=== PATIENT | female | born 1995 | race Caucasian/White ===

== ENCOUNTER 2016-06-05 13:22 | Emergency (ER) | payer OTHER ==
--- NOTE | 2016-06-05 15:26 | DIAGNOSTIC IMAGING REPORT ---
PROCEDURE: ABDOMEN/PELVIS WITH CONTRAST CLINICAL INDICATION: ABDOMINAL PAIN TECHNIQUE: 125 ml of Isovue 300 were injected intravenously and axial images were obtained of the abdomen and pelvis with sagittal and coronal reformations. COMPARISON: None. FINDINGS: ABDOMEN: Clear lung bases. Normal sized heart. No hiatal hernia. The liver, gallbladder, adrenal glands, kidneys, pancreas and spleen are normal. The abdominal aorta is normal in its course and caliber. There are no suspicious calcifications, retroperitoneal adenopathy or masses. The stomach, upper bowel loops, and mesentery are normal. Intact anterior abdominal wall. No free fluid or inflammation. PELVIS: Small amount of free fluid in the cul-de-sac. Involuting, peripherally hypervascular right ovarian corpus luteum. The appendix and pelvic small bowel loops are normal. Normal amount of stool in the colon and rectum. The uterus, ovaries, urinary bladder, and pelvic vessels are normal. No adenopathy, free fluid, or pelvic mass. Intact osseous structures. IMPRESSION: 1. Involuting right ovarian corpus luteum cyst. 2. Small amount of free pelvic fluid consistent with ovarian cyst rupture. 3. Nonvisualization of the appendix but no suspicious periappendiceal inflammatory changes. 4. Findings called to the emergency room. All CT scans at this facility use dose modulation, iterative reconstruction, and/or weight-based dosing when appropriate to reduce radiation dose to as low as reasonably achievable.
--- NOTE | 2016-06-05 15:28 | ED ORDER SUMMARY ---
..... Patient: DARA CUEVAS OrderSheet [facility] VisitID: [id number] [place] [address] 21y, F Registration Date/Time: 06/05/2016 ORDER SHEET Weight: 65.3 kg (stated) Allergies: No Known Drug Allergy GENERAL ORDERS: CBC w Diff Urgent (13:56 06/05/2016 HBivens A.R.N.P.) (Ack 14:02 IJurca ER Tech1) (14:10 EHassan R.N.) CMP Urgent (13:56 06/05/2016 HBivens A.R.N.P.) (Ack 14:02 IJurca ER Tech1) (14:10 EHassan R.N.) UA-Culture if indicated Urgent (13:56 06/05/2016 HBivens A.R.N.P.) (Ack 14:02 IJurca ER Tech1) (14:10 EHassan R.N.) Amylase Urgent (13:56 06/05/2016 HBivens A.R.N.P.) (Ack 14:02 IJurca ER Tech1) (14:10 EHassan R.N.) Lipase Urgent (13:56 06/05/2016 HBivens A.R.N.P.) (Ack 14:02 IJurca ER Tech1) (14:10 EHassan R.N.) Urine Urgent (13:56 06/05/2016 HBivens A.R.N.P.) (Ack 14:02 IJurca ER Tech1) (14:10 EHassan R.N.) CT Abd/Pel w Cont (No) (normal) Urgent (14:39 06/05/2016 HBivens A.R.N.P.) (Ack 14:42 IJurca ER Tech1) (14:59 IJurca ER Tech1) MEDICATION ORDERS: IV FLUIDS: Toradol IV 30 mg (NOW) (13:56 06/05/2016 HBivens A.R.N.P.) (14:11 EHassan R.N.) IV Saline Lock (13:56 06/05/2016 HBivens A.R.N.PClari) (14:10 Yonas Jenkins) ORDER SHEET NOTES: [Electronically signed by Aníbal Preston R.N. (15:39 06/05/2016)] [Electronically signed by Gay NarayananNClariPClari (17:04 06/05/2016)] [Electronically locked/signed by Aníbal Preston R.N. (15:39 06/05/2016)]
--- NOTE | 2016-06-05 15:28 | ED NURSING NOTES ---
Clinical Report - Nurses [facility] [address] [place] [address] 06/05/2016 13:27 Patient: DARA CUEVAS TRIAGE Triage time 1342 PM. Acuity: LEVEL 4. Chief Complaint: PELVIC PAIN and FREQUENCY. Alert. No acute distress. SEPSIS SCREEN: Sepsis Screen. Negative (no infection suspected/documented). --13:54 Marlin Chávez R.N. 13:41 06/05/16. BP: 139/48 (regular adult cuff) taken on the left arm, via an automated monitor, while lying. HR: 87. RR: 14. O2 saturation: 100%. Temp: 98.4 F (oral). Pain level now: 810. --13:54 Marlin Chávez R.N. Weight: 65.3 kg stated. Height/Length: 63 inches Per Patient. BMI: 25.5. --13:41 Marlni Chávez R.N. Medications Control Pills. --13:45 Marlin Chávez R.N. Allergies No Known Drug Allergy. --13:45 Marlin Chávez R.N. Medication/allergy information source: the patient. --13:54 Marlin Chávez R.N. History Arrived by private vehicle. Historian: patient. Accompanied by family. [facility] ( Pt states has been dealing with pelvic pain and cyst for the past 6 months, has been to different doctors but feels like has not received proper treatment for it. This pain initiated 1 1/2 week ago, thought maybe she has a UTI, but pain has been getting worst. Here for further evaluation. Pt has had a fevers for about a week, did not take temperature. Also has had urgency with urination, vomited x1 2 days ago and has continued to be nauseous. Pain is in the RLQ and has radiated to the back bilateral. Pt states being 2 weeks late, did go to the walk in yesterday at [facility]). Onset. (1 1/2 weeks). She has had abdominal pain. She has had moderate, intermittent right-sided and left-sided flank pain with nausea. No hematuria, abnormal bleeding or fever. 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 PAST MEDICAL HX: Immunizations: up-to-date. Last normal menstrual period- April 19. SOCIAL HX: Light tobacco smoker- less than 1/2 a pack per day. Occasional alcohol use. No drug use. No infectious disease exposure. ABUSE ASSESSMENT: No report of abuse. SELF HARM ASSESSMENT: A self harm assessment was performed. The patient answered "no" to the question "Do you have thoughts of harming or killing yourself?" and "Have you recently had thoughts about harming or killing others?". FALL RISK ASSESSMENT: Fall risk assessment completed. No fall risk identified. NUTRITIONAL RISK ASSESSMENT: The nutritional risk assessment revealed no deficiencies. FUNCTIONAL ASSESSMENT: Functional assessment: no impairments noted. LEARNING NEEDS ASSESSMENT: The learning needs assessment revealed no barriers. --13:54 Marlin Chávez R.N. PROBLEMS: Ovarian Cyst. Pelvic Pain. --13:45 Marlin Chávez R.N. ADDITIONAL SURGERIES: no known surgeries. Interventions ID band on patient. --13:54 Marlin Chávez R.N. NURSING PROGRESS NOTES The initial plan of care for this patient has been created This plan of care was discussed with the patient. Patient gowned. Warming measures: blanket applied. Reassurance given. Two patient identifiers checked. Call light placed in reach. --13:55 Marlin Chávez R.N. 14:10 06/05/2016 Site #1 started via IV in the left antecubital space with an 20g angiocath; one attempt. Blood drawn: rainbow set. Labeled in the presence of the patient and sent to the lab. --14:10 Marlin Chávez R.N. 14:11 06/05/2016 Toradol IVP 30 mg given over 30 second(s) via site #1. Allergies verified and confirmed 5 rights. IV patency established. IV site checked: no pain, redness, or swelling. IV flushed thoroughly pre- and post-medication administration. IVP given by RN. --14:11 Marlin Chávez R.N. Reassurance given. Overall patient status is improved- she states feels better. GI / : The patient reports nausea. The patient reports abdominal pain. Care transferred and report given (Vini Spangler). --15:15 Marlin Chávez R.N. 15:14 06/05/16. BP: 109/63 (regular adult cuff) taken on the left arm, via an automated monitor, while lying. HR: 60. RR: 16. O2 saturation: 100%. Temp: 98.7 F. Pain level now: 05/18. --15:15 Marlin Chávez R.N. Patient waiting for CT results. --15:15 Marlin Chávez R.N. DISPOSITION / DISCHARGE Departure time: 15:38. Condition at departure: improved. No learning barriers present. Discharge instructions provided and reviewed with the patient. Reviewed medication(s) side effects, precautions, dosing and course information. Prescription(s) given to the patient (ultram). Patient verbalized understanding. Written instructions provided in Cymro. ( Pt stated she will go back [facility] OBG[facility] The patient was discharged by the nurse practitioner. She was accompanied by spouse. She left the Emergency Department ambulatory and via private vehicle. Spouse driving. --15:39 Aníbal Preston R.N. Locked/Released at 06/05/2016 15:39 by Aníbal Preston R.N.
--- NOTE | 2016-06-05 15:28 | ED ORDER SUMMARY ---
..... Patient: DARA CUEVAS OrderSheet [facility] VisitID: [id number] [place] [address] 21y, F Registration Date/Time: 06/05/2016 ORDER SHEET Weight: 65.3 kg (stated) Allergies: No Known Drug Allergy GENERAL ORDERS: CBC w Diff Urgent (13:56 06/05/2016 HBivens A.R.N.P.) (Ack 14:02 IJurca ER Tech1) (14:10 EHassan R.N.) CMP Urgent (13:56 06/05/2016 HBivens A.R.N.P.) (Ack 14:02 IJurca ER Tech1) (14:10 EHassan R.N.) UA-Culture if indicated Urgent (13:56 06/05/2016 HBivens A.R.N.P.) (Ack 14:02 IJurca ER Tech1) (14:10 EHassan R.N.) Amylase Urgent (13:56 06/05/2016 HBivens A.R.N.P.) (Ack 14:02 IJurca ER Tech1) (14:10 EHassan R.N.) Lipase Urgent (13:56 06/05/2016 HBivens A.R.N.P.) (Ack 14:02 IJurca ER Tech1) (14:10 EHassan R.N.) Urine Urgent (13:56 06/05/2016 HBivens A.R.N.P.) (Ack 14:02 IJurca ER Tech1) (14:10 EHassan R.N.) CT Abd/Pel w Cont (No) (normal) Urgent (14:39 06/05/2016 HBivens A.R.N.P.) (Ack 14:42 IJurca ER Tech1) (14:59 IJurca ER Tech1) MEDICATION ORDERS: IV FLUIDS: Toradol IV 30 mg (NOW) (13:56 06/05/2016 HBivens A.R.N.P.) (14:11 EHassan R.N.) IV Saline Lock (13:56 06/05/2016 HBivens A.R.N.PClari) (14:10 Yonas Jenkins) ORDER SHEET NOTES: [Electronically signed by Aníbal Preston R.N. (15:39 06/05/2016)] [Electronically signed by Gay NarayananNClariPClari (17:04 06/05/2016)] [Electronically locked/signed by Aníbal Preston R.N. (15:39 06/05/2016)]
--- NOTE | 2016-06-05 15:28 | ED NURSING NOTES ---
Clinical Report - Nurses [facility] [address] [place] [address] 06/05/2016 13:27 Patient: DARA CUEVAS TRIAGE Triage time 1342 PM. Acuity: LEVEL 4. Chief Complaint: PELVIC PAIN and FREQUENCY. Alert. No acute distress. SEPSIS SCREEN: Sepsis Screen. Negative (no infection suspected/documented). --13:54 Marlin Chávez R.N. 13:41 06/05/16. BP: 139/48 (regular adult cuff) taken on the left arm, via an automated monitor, while lying. HR: 87. RR: 14. O2 saturation: 100%. Temp: 98.4 F (oral). Pain level now: 810. --13:54 Marlin Chávez R.N. Weight: 65.3 kg stated. Height/Length: 63 inches Per Patient. BMI: 25.5. --13:41 Marlin Chávez R.N. Medications Control Pills. --13:45 Marlin Chávez R.N. Allergies No Known Drug Allergy. --13:45 Marlin Chávez R.N. Medication/allergy information source: the patient. --13:54 Marlin Chávez R.N. History Arrived by private vehicle. Historian: patient. Accompanied by family. [facility] ( Pt states has been dealing with pelvic pain and cyst for the past 6 months, has been to different doctors but feels like has not received proper treatment for it. This pain initiated 1 1/2 week ago, thought maybe she has a UTI, but pain has been getting worst. Here for further evaluation. Pt has had a fevers for about a week, did not take temperature. Also has had urgency with urination, vomited x1 2 days ago and has continued to be nauseous. Pain is in the RLQ and has radiated to the back bilateral. Pt states being 2 weeks late, did go to the walk in yesterday at [facility]). Onset. (1 1/2 weeks). She has had abdominal pain. She has had moderate, intermittent right-sided and left-sided flank pain with nausea. No hematuria, abnormal bleeding or fever. 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 PAST MEDICAL HX: Immunizations: up-to-date. Last normal menstrual period- April 19. SOCIAL HX: Light tobacco smoker- less than 1/2 a pack per day. Occasional alcohol use. No drug use. No infectious disease exposure. ABUSE ASSESSMENT: No report of abuse. SELF HARM ASSESSMENT: A self harm assessment was performed. The patient answered "no" to the question "Do you have thoughts of harming or killing yourself?" and "Have you recently had thoughts about harming or killing others?". FALL RISK ASSESSMENT: Fall risk assessment completed. No fall risk identified. NUTRITIONAL RISK ASSESSMENT: The nutritional risk assessment revealed no deficiencies. FUNCTIONAL ASSESSMENT: Functional assessment: no impairments noted. LEARNING NEEDS ASSESSMENT: The learning needs assessment revealed no barriers. --13:54 Marlin Chávez R.N. PROBLEMS: Ovarian Cyst. Pelvic Pain. --13:45 Marlin Chávez R.N. ADDITIONAL SURGERIES: no known surgeries. Interventions ID band on patient. --13:54 Marlin Chávez R.N. NURSING PROGRESS NOTES The initial plan of care for this patient has been created This plan of care was discussed with the patient. Patient gowned. Warming measures: blanket applied. Reassurance given. Two patient identifiers checked. Call light placed in reach. --13:55 Marlin Chávez R.N. 14:10 06/05/2016 Site #1 started via IV in the left antecubital space with an 20g angiocath; one attempt. Blood drawn: rainbow set. Labeled in the presence of the patient and sent to the lab. --14:10 Marlin Chávez R.N. 14:11 06/05/2016 Toradol IVP 30 mg given over 30 second(s) via site #1. Allergies verified and confirmed 5 rights. IV patency established. IV site checked: no pain, redness, or swelling. IV flushed thoroughly pre- and post-medication administration. IVP given by RN. --14:11 Marlin Chávez R.N. Reassurance given. Overall patient status is improved- she states feels better. GI / : The patient reports nausea. The patient reports abdominal pain. Care transferred and report given (Vini Spangler). --15:15 Marlin Chávez R.N. 15:14 06/05/16. BP: 109/63 (regular adult cuff) taken on the left arm, via an automated monitor, while lying. HR: 60. RR: 16. O2 saturation: 100%. Temp: 98.7 F. Pain level now: 05/18. --15:15 Marlin Chávez R.N. Patient waiting for CT results. --15:15 Marlin Chávez R.N. DISPOSITION / DISCHARGE Departure time: 15:38. Condition at departure: improved. No learning barriers present. Discharge instructions provided and reviewed with the patient. Reviewed medication(s) side effects, precautions, dosing and course information. Prescription(s) given to the patient (ultram). Patient verbalized understanding. Written instructions provided in Bel[place]an. ( Pt stated she will go back to [facility] OBG[facility] The patient was discharged by the nurse practitioner. She was accompanied by spouse. She left the Emergency Department ambulatory and via private vehicle. Spouse driving. --15:39 Aníbal Preston R.N. Locked/Released at 06/05/2016 15:39 by Aníbla Preston R.N.
--- NOTE | 2016-06-05 15:28 | ED CLINICAL REPORT ---
Clinical Report - Physicians/Mid Levels [facility] [address] [place] [address] 06/05/2016 13:27 Patient: DARA CUEVAS Time Seen: 13:49; initial patient contact, initial documentation, patient care assumed. Arrived- By private vehicle. Historian- patient. HISTORY OF PRESENT ILLNESS Chief Complaint: ABDOMINAL PAIN. At its maximum, severity described as moderate. When seen in the E.D., severity described as moderate. Modifying factors. Not worsened by anything. Not relieved by anything. This started about 6 months ago. It is described as "pain". No radiation. It is described as located in the right lower quadrant and right pelvis. No nausea or loss of appetite. She has had mild vomiting (none today). She has had diarrhea (none today). No additional abdominal pain. Similar symptoms previously: Chronically, milder. Recent medical care: The patient was seen recently in a clinic. ( went to yesterday, urine checked and dx with R ovarian cyst, pain no better so came here today). REVIEW OF SYSTEMS No constipation, black stools, hematemesis, difficulty with urination or pain with urination. No abnormal bleeding, chest pain or difficulty breathing. The patient has had mild urinary frequency. The patient has missed periods (about 2 weeks late this month, and never late). Denies current . She has had a subjective fever. All systems otherwise negative, except as recorded above. PAST HISTORY See nurses notes. PROBLEMS: Ovarian Cyst. Pelvic Pain. --13:45 Marlin Chávez RSal ADDITIONAL SURGERIES: no known surgeries. SOCIAL HISTORY Light tobacco smoker. Occasional alcohol use. No drug use. No recent travel. Is a local resident. FAMILY HISTORY Negative. ADDITIONAL NOTES The nursing notes have been reviewed with agreement regarding the chief complaint, HPI, ROS, PMH and patient medications and allergies. PHYSICAL EXAM Vital Signs: 06/05/2016 13:41 BP: 139/48. HR: 87. RR: 14. O2 saturation: 100%. Temp: 98.4 F. Pain level now: 8/10. Have been reviewed as normal and appear to be correct. Appearance: Alert. Oriented X3. No acute distress. Eyes: Pupils equal, round and reactive to light. Eyes normal inspection. Neck: Normal inspection. Neck supple. CVS: Normal heart rate and rhythm. Heart sounds normal. Pulses normal. Respiratory: No respiratory distress. Breath sounds normal. Chest nontender. Abdomen: Soft. Mild tenderness in the right lower quadrant. No guarding, rebound tenderness or Baum's, obturator or psoas sign present. Bowel sounds normal. No organomegaly. No mass. Tenderness present. Back: Normal inspection. Skin: Skin warm and dry. Normal skin color. No rash. Normal skin turgor. Extremities: Extremities exhibit normal ROM. No lower extremity edema. Neuro: Oriented X 3. No motor deficit. No sensory deficit. LABS, X-RAYS, AND EKG Abdominal CT: . IMPRESSION: 1. Involuting right ovarian corpus luteum cyst. 2. Small amount of free pelvic fluid consistent with ovarian cyst rupture. 3. Nonvisualization of the appendix but no suspicious periappendiceal inflammatory changes. 4. Findings called to the emergency room. All CT scans at this facility use dose modulation, iterative reconstruction, and/or weight-based dosing when appropriate to reduce radiation dose to as low as reasonably achievable. Electronically Final signed by:Iris Avitia MD 06/05/2016 3:26:35 PM. The study was interpreted by the radiologist and discussed with the radiologist. Interpretation time: 15:25. Laboratory Tests: UA-Culture if indicated: (ULICES: 06/05/2016 13:40) ( MsgRcvd 06/05/2016 14:32) Final results Test Result Flag Units (Reference) URINE COLOR YELLOW URINE APPEARANCE CLEAR URINE GLUCOSE NEGATIVE (NEGATIVE) URINE BILIRUBIN NEGATIVE (NEGATIVE) URINE KETONE 1+ (NEGATIVE) URINE SPECIFIC GRAVITY 1.025 (1.010-1.030) URINE PH 5.5 (5.0-8.0) URINE PROTEIN NEGATIVE (NEGATIVE) URINE UROBILINOGEN 0.2 EU/dL (0.2-1.0) URINE NITRITE NEGATIVE (NEGATIVE) URINE BLOOD TRACE-INTACT (NEGATIVE) URINE LEUK ESTERASE NEGATIVE (NEGATIVE) URINE RBC 0-1 rbc/hpf (0-1) URINE WBC 0-1 wbc/hpf (0-1) URINE EPITHELIAL CELLS 1-3 EPI/hpf (0-5) URINE BACTERIA TRACE (<1+) (NONE SEEN) URINE COMMENT CULT NOT INDICATED 1+ MUCUSURINE CULTURES ARE SET-UP BASED ON THE FOLLOWING CRITERIA:POSITIVE NITRITEPOSITIVE LEUKOCYTE ESTERASEGREATER THAN 10 WHITE BLOOD CELLSMODERATE (2+) OR GREATER BACTERIA Urine: (ULICES: 06/05/2016 13:40) ( [facility] 06/05/2016 14:15) Final results Test Result Flag Units (Reference) URINE NEGATIVE CBC w Diff: (ULICES: 06/05/2016 14:10) ( [facility] 06/05/2016 14:24) Final results Test Result Flag Units (Reference) WHITE BLOOD COUNT 8.0 K/uL (4.5-11.5) RED BLOOD COUNT 4.43 M/uL (4.00-5.20) HEMOGLOBIN 13.6 gm/dL (12.0-16.0) HEMATOCRIT 40.7 % (36.0-46.0) MEAN CELL VOLUME 92 fL (80-100) MEAN CORPUSCULAR HGB 31 pg (26-34) MEAN CORPUSCULAR HGB CONC 33 g/dL (31-37) RED CELL DISTRIBUTION WIDTH 12.5 % (11.6-14.8) PLATELET COUNT 215 K/uL (150-400) NEUTROPHIL % 75.1 H % (50-75) LYMPH % 17.8 L % (25-40) MONO % 6.0 % (3-14) EOSINOPHIL % 0.8 % (0-4) BASOPHIL % 0.3 % (0-2) CMP: (ULICES: 06/05/2016 14:10) ( [facility] 06/05/2016 14:32) Final results Test Result Flag Units (Reference) GLUCOSE 90 mg/dL (70-110) BUN 14 mg/dL (7-18) CREATININE 0.8 mg/dL (0.6-1.3) Estimated GFR >60 mL/min Estimated GFR- >60 mL/min Note: Persistent reduction over 3 months in eGFR<60 mL/min/1.73 m2 defines CKD. Patients with eGFR values>=60 mL/min/1.73 m2 may also have CKD if evidence ofpersistent proteinuria. Additional information may be foundat www.kidney.org. SODIUM 143 mmol/L (136-145) POTASSIUM 3.9 mmol/L (3.5-5.1) CHLORIDE 106 mmol/L (98-107) CARBON DIOXIDE 25 mmol/L (21-32) CALCIUM 8.5 mg/dL (8.5-10.1) TOTAL PROTEIN 7.4 g/dL (6.4-8.2) ALBUMIN 3.9 g/dL (3.3-5.0) BILIRUBIN, TOTAL 0.8 mg/dL (0.0-1.0) ALKALINE PHOSPHATASE 50 U/L (46-116) AST (SGOT) 23 U/L (15-37) ALT (SGPT) 24 U/L (12-78) LIPASE 145 U/L (73-393) AMYLASE 59 U/L (25-115) . PROGRESS AND PROCEDURES Course of Care: records from reviewed. Patient and spouse counseled in person regarding the patient's stable condition, test results and diagnosis. 1525. Differential Diagnosis: I considered acute appendicitis, mesenteric lymphadenitis, Meckel's diverticulum, diverticulitis, colon cancer, ulcerative colitis, Crohn's disease, biliary colic, cholecystitis, cholelithiasis, hepatitis, pancreatitis, common bile duct obstruction, urinary tract infection, cystitis, ureterolithiasis, ovarian cyst, ovarian torsion, , ectopic , pelvic inflammatory disease, pelvic abscess, endometriosis and viral syndrome as a possible cause of abdominal pain in this patient. This is a partial list of diagnoses considered. Above considerations are based on history, physical exam, laboratory data and other information. Differential diagnosis was discussed with patient. Disposition: Discharged home in good and improved condition (15:28). Condition: good and stable. CLINICAL IMPRESSION Single simple right ovarian cyst. No ruptured ovarian cyst, torsion of ovary or polycystic ovarian disease. INSTRUCTIONS Warnings: GENERAL WARNINGS: Return or contact your physician immediately if your condition worsens or changes unexpectedly, if not improving as expected, or if other problems arise. SPECIFICALLY, return if you develop pain in the abdomen or pelvis, fever, the inability to keep fluids down, blood in vomitus, blood in diarrhea, fainting or lightheadedness. Prescription Medications: Ultram 50 mg tablets: take 1-2 orally every 6 hours as needed for pain. Dispense twenty (20). No refills. Substitution is permissible. Follow-up: Follow up with your doctor in about two days even if well. Call for an appointment. Summary of care provided to patient. Understanding of the discharge instructions verbalized by patient. (Electronically signed by Gay Narayanan A.R.N.P. 06/05/2016 17:04)
--- NOTE | 2016-06-05 17:04 | ED DISCHARGE INSTRUCTIONS ---
Patient: DARA CUEVAS General Instructions [facility] VisitID: [id number] [place] [address] 21y, F Registration Date/Time: 06/05/2016 Single simple right ovarian cyst. No ruptured ovarian cyst, torsion of ovary or polycystic ovarian disease. INSTRUCTIONS Warnings: GENERAL WARNINGS: Return or contact your physician immediately if your condition worsens or changes unexpectedly, if not improving as expected, or if other problems arise. SPECIFICALLY, return if you develop pain in the abdomen or pelvis, fever, the inability to keep fluids down, blood in vomitus, blood in diarrhea, fainting or lightheadedness. Prescription Medications: Ultram 50 mg tablets: take 1-2 orally every 6 hours as needed for pain. Dispense twenty (20). No refills. Substitution is permissible. Follow-up: Follow up with your doctor in about two days even if well. Call for an appointment. Summary of care provided to patient. Understanding of the discharge instructions verbalized by patient. ADDITIONAL INFORMATION Ovarian Cyst The ovary is a small organ located on each side of the uterus. During each menstrual cycle a tiny egg sac forms in the ovary. If the egg is released but does not occur, this sac usually dissolves. Sometimes, the sac may fill with fluid. It then enlarges into a painful cyst. Usually the cyst will rupture or shrink on its own. In either case, the pain gradually goes away over the next 1-3 days. If the cyst does not shrink or rupture, it may cause continued pain. Home Care: Rest in bed and avoid heavy exertion until you are feeling better. Heat to the lower abdomen usually helps (heating pad or hot packs -- a small towel soaked in hot water). You may use acetaminophen (Tylenol) or ibuprofen (Motrin, Advil) to control pain, unless another pain medicine was prescribed. [NOTE: If you have chronic liver or kidney disease or ever had a stomach ulcer or GI bleeding, talk with your doctor before using these medicines.] Follow Up: See your doctor within the next 2-3 days if your pain doesnt improve. Otherwise, follow up with your doctor after your next period or as directed by our staff. Get Prompt Medical Attention if any of the following occur: Pain worsens or fails to respond to the above measures Fever of 100.4F (38C) or higher, or as directed by your healthcare provider Heavy vaginal bleeding (soaking one pad an hour for three hours) You feel weak or dizzy Fainting Passage of a pink or steen tissue with menstrual bleeding Pelvic Pain, Uncertain Cause Based on your visit today, the exact cause of your pelvic pain is not certain. But your condition does not appear to be serious at this time. However, the signs of a serious problem may take more time to appear. Therefore, it is important for you to watch for any new symptoms or worsening of your condition. Home Care: Rest until you are feeling better. Avoid sexual intercourse until your pain goes away. You may use acetaminophen (Tylenol) or ibuprofen (Motrin, Advil) to control pain, unless another medicine was prescribed. [NOTE: If you have chronic liver or kidney disease or ever had a stomach ulcer or GI bleeding, talk with your doctor before using these medicines.] Follow Up with your doctor as advised. If a culture test was taken, call in two days for the results. If the culture is positive, you will be given more advice at that time. Otherwise, follow-up with your doctor or this facility as instructed. Get Prompt Medical Attention if any of the following occur: Fever of 100.4F (38C) or higher, or as directed by your healthcare provider Vaginal discharge Worsening pain Weakness, dizziness or fainting Unexpected vaginal bleeding or passage of steen or white tissue from the vagina Pain that moves to the right lower abdomen Tramadol Hydrochloride Oral tablet What is this medicine? TRAMADOL (TRA ma dole) is a pain reliever. It is used to treat moderate to severe pain in adults. How should I use this medicine? Take this medicine by mouth with a full glass of water. Follow the directions on the prescription label. If the medicine upsets your stomach, take it with food or milk. Do not take more medicine than you are told to take. Talk to your vac press operator regarding the use of this medicine in children. Special care may be needed. What side effects may I notice from receiving this medicine? Side effects that you should report to your doctor or health acute care nursing assistant as soon as possible: allergic reactions like skin rash, itching or hives, swelling of the face, lips, or tongue breathing difficulties, wheezing confusion itching light headedness or fainting spells redness, blistering, peeling or loosening of the skin, including inside the mouth seizures Side effects that usually do not require medical attention (report to your doctor or health acute care nursing assistant if they continue or are bothersome): constipation dizziness drowsiness headache nausea, vomiting What may interact with this medicine? Do not take this medicine with any of the following medications: MAOIs like Carbex, Eldepryl, Marplan, Nardil, and Parnate This medicine may also interact with the following medications: alcohol or medicines that contain alcohol antihistamines benzodiazepines bupropion carbamazepine or oxcarbazepine clozapine cyclobenzaprine digoxin furazolidone linezolid medicines for depression, anxiety, or psychotic disturbances medicines for migraine headache like almotriptan, eletriptan, frovatriptan, naratriptan, rizatriptan, sumatriptan, zolmitriptan medicines for pain like pentazocine, buprenorphine, butorphanol, meperidine, nalbuphine, and propoxyphene medicines for sleep muscle relaxants naltrexone phenobarbital phenothiazines like perphenazine, thioridazine, chlorpromazine, mesoridazine, fluphenazine, prochlorperazine, promazine, and trifluoperazine procarbazine warfarin What if I miss a dose? If you miss a dose, take it as soon as you can. If it is almost time for your next dose, take only that dose. Do not take double or extra doses. Where should I keep my medicine? Keep out of the reach of children. Store at room temperature between 15 and 30 degrees C (59 and 86 degrees F). Keep container tightly closed. Throw away any unused medicine after the expiration date. What should I tell my health care provider before I take this medicine? They need to know if you have any of these conditions: brain tumor depression drug abuse or addiction head injury if you frequently drink alcohol containing drinks kidney disease or trouble passing urine liver disease lung disease, asthma, or breathing problems seizures or epilepsy suicidal thoughts, plans, or attempt; a previous suicide attempt by you or a family member an unusual or allergic reaction to tramadol, codeine, other medicines, foods, dyes, or preservatives or trying to get breast-feeding What should I watch for while using this medicine? Tell your doctor or health acute care nursing assistant if your pain does not go away, if it gets worse, or if you have new or a different type of pain. You may develop tolerance to the medicine. Tolerance means that you will need a higher dose of the medicine for pain relief. Tolerance is normal and is expected if you take this medicine for a long time. Do not suddenly stop taking your medicine because you may develop a severe reaction. Your body becomes used to the medicine. This does NOT mean you are addicted. Addiction is a behavior related to getting and using a drug for a non-medical reason. If you have pain, you have a medical reason to take pain medicine. Your doctor will tell you how much medicine to take. If your doctor wants you to stop the medicine, the dose will be slowly lowered over time to avoid any side effects. You may get drowsy or dizzy. Do not drive, use machinery, or do anything that needs mental alertness until you know how this medicine affects you. Do not stand or sit up quickly, especially if you are an older patient. This reduces the risk of dizzy or fainting spells. Alcohol can increase or decrease the effects of this medicine. Avoid alcoholic drinks. You may have constipation. Try to have a bowel movement at least every 2 to 3 days. If you do not have a bowel movement for 3 days, call your doctor or health acute care nursing assistant. Your mouth may get dry. Chewing sugarless gum or sucking hard candy, and drinking plenty of water may help. Contact your doctor if the problem does not go away or is severe. You have been given the following additional information: Ovarian Cyst Pelvic Pain, Unknown Cause Tramadol Hydrochloride Oral tablet (Electronically signed by Gay Narayanan A.R.N.P. 06/05/2016 17:04)
--- NOTE | 2016-06-05 17:04 | ED MED RECONCILIATION SUMMARY ---
Patient: DARA CUEVAS Medication Reconciliation Report [facility] VisitID: [id number] [address] [place] [address] 21y, F Registration Date/Time: 06/05/2016 Weight: 65.3 kg Height/Length: 63 in. BMI: 25.5 ALLERGIES: No Known Drug Allergy The patient's Home Medications are listed below: THE FOLLOWING MEDICATIONS NEED TO BE RECONCILED: Control Pills The source(s) of the original Home Medication information: patient The following Medications were given to the patient in the Emergency Department: Toradol [IVP] IVP 30 mg, administered: 06/05/2016 2:11:00 PM The following Medications were prescribed to the patient: Ultram 50 mg tablets: take 1-2 orally every 6 hours as needed for pain. Dispense twenty (20). No refills. Substitution is permissible. -- Gay Narayanan A.R.N.P.
--- NOTE | 2016-06-05 17:04 | ED MAR SUMMARY ---
..... Medication Administration Record [facility] [address] [place] [place] [address] Patient: DARA CUEVAS Visit ID: [id number] 21y, F Weight: 65.3 kg Height/Length: 63 in BMI: 25.5 ALLERGIES: No Known Drug Allergy Given 14:11 06/05/2016 Marlin Chávez RSal Medication Administered: TORADOL [IVP], Dose: 30 mg IVP over 30 second(s), Site: #1 left AC. Medication Ordered: Toradol IV 30 mg (NOW).
--- NOTE | 2016-06-05 17:04 | ED MAR SUMMARY ---
..... Medication Administration Record [facility] [address] [place] [address] Patient: DARA CUEVAS Visit ID: [id number] 21y, F Weight: 65.3 kg Height/Length: 63 in BMI: 25.5 ALLERGIES: No Known Drug Allergy Given 14:11 06/05/2016 Marlin Chávez RSal Medication Administered: TORADOL [IVP], Dose: 30 mg IVP over 30 second(s), Site: #1 left AC. Medication Ordered: Toradol IV 30 mg (NOW).
--- NOTE | 2016-06-05 17:04 | ED MED RECONCILIATION SUMMARY ---
Patient: DARA CUEVAS Medication Reconciliation Report [facility] VisitID: [id number] [address] [place] [address] 21y, F Registration Date/Time: 06/05/2016 Weight: 65.3 kg Height/Length: 63 in. BMI: 25.5 ALLERGIES: No Known Drug Allergy The patient's Home Medications are listed below: THE FOLLOWING MEDICATIONS NEED TO BE RECONCILED: Control Pills The source(s) of the original Home Medication information: patient The following Medications were given to the patient in the Emergency Department: Toradol [IVP] IVP 30 mg, administered: 06/05/2016 2:11:00 PM The following Medications were prescribed to the patient: Ultram 50 mg tablets: take 1-2 orally every 6 hours as needed for pain. Dispense twenty (20). No refills. Substitution is permissible. -- Gay Narayanan A.R.N.P.
--- NOTE | 2016-06-05 17:04 | ED DISCHARGE INSTRUCTIONS ---
Patient: DARA CUEVAS General Instructions [facility] VisitID: [id number] [place] [address] 21y, F Registration Date/Time: 06/05/2016 Single simple right ovarian cyst. No ruptured ovarian cyst, torsion of ovary or polycystic ovarian disease. INSTRUCTIONS Warnings: GENERAL WARNINGS: Return or contact your physician immediately if your condition worsens or changes unexpectedly, if not improving as expected, or if other problems arise. SPECIFICALLY, return if you develop pain in the abdomen or pelvis, fever, the inability to keep fluids down, blood in vomitus, blood in diarrhea, fainting or lightheadedness. Prescription Medications: Ultram 50 mg tablets: take 1-2 orally every 6 hours as needed for pain. Dispense twenty (20). No refills. Substitution is permissible. Follow-up: Follow up with your doctor in about two days even if well. Call for an appointment. Summary of care provided to patient. Understanding of the discharge instructions verbalized by patient. ADDITIONAL INFORMATION Ovarian Cyst The ovary is a small organ located on each side of the uterus. During each menstrual cycle a tiny egg sac forms in the ovary. If the egg is released but does not occur, this sac usually dissolves. Sometimes, the sac may fill with fluid. It then enlarges into a painful cyst. Usually the cyst will rupture or shrink on its own. In either case, the pain gradually goes away over the next 1-3 days. If the cyst does not shrink or rupture, it may cause continued pain. Home Care: Rest in bed and avoid heavy exertion until you are feeling better. Heat to the lower abdomen usually helps (heating pad or hot packs -- a small towel soaked in hot water). You may use acetaminophen (Tylenol) or ibuprofen (Motrin, Advil) to control pain, unless another pain medicine was prescribed. [NOTE: If you have chronic liver or kidney disease or ever had a stomach ulcer or GI bleeding, talk with your doctor before using these medicines.] Follow Up: See your doctor within the next 2-3 days if your pain doesnt improve. Otherwise, follow up with your doctor after your next period or as directed by our staff. Get Prompt Medical Attention if any of the following occur: Pain worsens or fails to respond to the above measures Fever of 100.4F (38C) or higher, or as directed by your healthcare provider Heavy vaginal bleeding (soaking one pad an hour for three hours) You feel weak or dizzy Fainting Passage of a pink or steen tissue with menstrual bleeding Pelvic Pain, Uncertain Cause Based on your visit today, the exact cause of your pelvic pain is not certain. But your condition does not appear to be serious at this time. However, the signs of a serious problem may take more time to appear. Therefore, it is important for you to watch for any new symptoms or worsening of your condition. Home Care: Rest until you are feeling better. Avoid sexual intercourse until your pain goes away. You may use acetaminophen (Tylenol) or ibuprofen (Motrin, Advil) to control pain, unless another medicine was prescribed. [NOTE: If you have chronic liver or kidney disease or ever had a stomach ulcer or GI bleeding, talk with your doctor before using these medicines.] Follow Up with your doctor as advised. If a culture test was taken, call in two days for the results. If the culture is positive, you will be given more advice at that time. Otherwise, follow-up with your doctor or this facility as instructed. Get Prompt Medical Attention if any of the following occur: Fever of 100.4F (38C) or higher, or as directed by your healthcare provider Vaginal discharge Worsening pain Weakness, dizziness or fainting Unexpected vaginal bleeding or passage of steen or white tissue from the vagina Pain that moves to the right lower abdomen Tramadol Hydrochloride Oral tablet What is this medicine? TRAMADOL (TRA ma dole) is a pain reliever. It is used to treat moderate to severe pain in adults. How should I use this medicine? Take this medicine by mouth with a full glass of water. Follow the directions on the prescription label. If the medicine upsets your stomach, take it with food or milk. Do not take more medicine than you are told to take. Talk to your head of strategy regarding the use of this medicine in children. Special care may be needed. What side effects may I notice from receiving this medicine? Side effects that you should report to your doctor or health adult day care worker as soon as possible: allergic reactions like skin rash, itching or hives, swelling of the face, lips, or tongue breathing difficulties, wheezing confusion itching light headedness or fainting spells redness, blistering, peeling or loosening of the skin, including inside the mouth seizures Side effects that usually do not require medical attention (report to your doctor or health adult day care worker if they continue or are bothersome): constipation dizziness drowsiness headache nausea, vomiting What may interact with this medicine? Do not take this medicine with any of the following medications: MAOIs like Carbex, Eldepryl, Marplan, Nardil, and Parnate This medicine may also interact with the following medications: alcohol or medicines that contain alcohol antihistamines benzodiazepines bupropion carbamazepine or oxcarbazepine clozapine cyclobenzaprine digoxin furazolidone linezolid medicines for depression, anxiety, or psychotic disturbances medicines for migraine headache like almotriptan, eletriptan, frovatriptan, naratriptan, rizatriptan, sumatriptan, zolmitriptan medicines for pain like pentazocine, buprenorphine, butorphanol, meperidine, nalbuphine, and propoxyphene medicines for sleep muscle relaxants naltrexone phenobarbital phenothiazines like perphenazine, thioridazine, chlorpromazine, mesoridazine, fluphenazine, prochlorperazine, promazine, and trifluoperazine procarbazine warfarin What if I miss a dose? If you miss a dose, take it as soon as you can. If it is almost time for your next dose, take only that dose. Do not take double or extra doses. Where should I keep my medicine? Keep out of the reach of children. Store at room temperature between 15 and 30 degrees C (59 and 86 degrees F). Keep container tightly closed. Throw away any unused medicine after the expiration date. What should I tell my health care provider before I take this medicine? They need to know if you have any of these conditions: brain tumor depression drug abuse or addiction head injury if you frequently drink alcohol containing drinks kidney disease or trouble passing urine liver disease lung disease, asthma, or breathing problems seizures or epilepsy suicidal thoughts, plans, or attempt; a previous suicide attempt by you or a family member an unusual or allergic reaction to tramadol, codeine, other medicines, foods, dyes, or preservatives or trying to get breast-feeding What should I watch for while using this medicine? Tell your doctor or health adult day care worker if your pain does not go away, if it gets worse, or if you have new or a different type of pain. You may develop tolerance to the medicine. Tolerance means that you will need a higher dose of the medicine for pain relief. Tolerance is normal and is expected if you take this medicine for a long time. Do not suddenly stop taking your medicine because you may develop a severe reaction. Your body becomes used to the medicine. This does NOT mean you are addicted. Addiction is a behavior related to getting and using a drug for a non-medical reason. If you have pain, you have a medical reason to take pain medicine. Your doctor will tell you how much medicine to take. If your doctor wants you to stop the medicine, the dose will be slowly lowered over time to avoid any side effects. You may get drowsy or dizzy. Do not drive, use machinery, or do anything that needs mental alertness until you know how this medicine affects you. Do not stand or sit up quickly, especially if you are an older patient. This reduces the risk of dizzy or fainting spells. Alcohol can increase or decrease the effects of this medicine. Avoid alcoholic drinks. You may have constipation. Try to have a bowel movement at least every 2 to 3 days. If you do not have a bowel movement for 3 days, call your doctor or health adult day care worker. Your mouth may get dry. Chewing sugarless gum or sucking hard candy, and drinking plenty of water may help. Contact your doctor if the problem does not go away or is severe. You have been given the following additional information: Ovarian Cyst Pelvic Pain, Unknown Cause Tramadol Hydrochloride Oral tablet (Electronically signed by Gay Narayanan A.R.N.P. 06/05/2016 17:04)
== END 2016-06-05 15:30 | disposition home or self-care (01) ==
LOC: ED SRH 13:22
DX: N83.11 Corpus luteum cyst of right ovary (principal); F17.200 Nicotine dependence, unspecified, uncomplicated
CPT/HCPCS: 90004; 90100; 92235; 92530; 93070; 95059